=== PATIENT | female | born 1985 | race Caucasian/White ===

== ENCOUNTER 2022-01-11 17:43 | Emergency (ER) | payer SELFPAY ==
[2022-01-11 17:50] VITALS: BP 137/81; PULSE 78; RESP 14; TEMP 36.4; O2SAT 100
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
[2022-01-11] MEDS: IBUPROFEN 400 MG TABLET 800 MG PO (18:28)
[2022-01-11] MEDS: CYCLOBENZAPRINE HCL 10 MG TABLET PO (18:28)
== END 2022-01-11 18:57 | disposition home or self-care (01) ==
PROVIDERS: Emergency Provider Emergency Medicine
DX: S29.012A Strain of muscle and tendon of back wall of thorax, initial encounter (principal)
CPT/HCPCS: 99283; A9270

== ENCOUNTER 2023-03-09 05:43 | Emergency (ER) | payer SELFPAY ==
[2023-03-09 05:46] VITALS: BP 128/84; PULSE 76; RESP 18; TEMP 36.5; O2SAT 98
--- NOTE | 2023-03-09 05:56 | ED.URI ---
HPI - URI/Sore Throat General Chief Complaint: Upper Respiratory Infection Stated Complaint: Sinus Infection Source: patient Mode of arrival: ambulatory Limitations: no limitations History of Present Illness HPI Narrative: 37-year-old female presents with a 2 day history of -- nasal congestion -- sore throat -- chills without any fever -- had nausea / vomiting and diarrhea yesterday but none today MD elicited complaint: sore throat, nasal congestion and sinus pain Onset (ago): day(s) ( started 2 days ago) Consistency: constant Description of mucous: clear Able to tolerate fluids by mouth: Yes Exacerbating factors: nothing Relieving factors: nothing Treatments prior to arrival: none Related Data Home Medications Medication Instructions Recorded Confirmed duloxetine 20 mg capsule,delayed 20 mg PO DAILY 01/11/22 03/09/23 release Allergies Allergy/AdvReac Type Severity Reaction Status Date / Time No Known Allergies Allergy Unverified 01/11/22 18:07 Review of Systems Review of Systems: All systems reviewed & are unremarkable except as noted in HPI and below Constitutional: Constitutional: Reports as per HPI, Reports no additional constitutional complaints and Reports fever(s) Eyes: Eyes: Reports as per HPI and Reports no additional eye complaints ENT: Reports system reviewed and no additional complaints, except as documented, Reports as per HPI and Reports nasal congestion Cardiovascular: Cardiovascular: Reports as per HPI and Reports no additional cardiovascular complaints Respiratory: Respiratory: Reports as per HPI and Reports no additional respiratory complaints Gastrointestinal: Gastrointestinal: Reports as per HPI, Reports no additional gastrointestinal complaints, Reports diarrhea, Reports nausea and Reports vomiting Genitourinary: Genitourinary: Reports no additional female genitourinary complaints Musculoskeletal: Musculoskeletal: Reports no additional musculoskeletal complaints and Reports as per HPI Integumentary/Breasts: Skin/Breast: Reports system reviewed and no additional complaints, except as docu and Reports as per HPI Neurologic: Reports system reviewed and no additional complaints, except as documented and Reports as per HPI Psychiatric: Psychiatric: Reports no additional psychiatric complaints and Reports as per HPI Endocrine: Endocrine: Reports no additional endocrine complaints and Reports as per HPI Hematologic/Lymphatic: Hematologic/Lymphatic: Reports no additional hematologic/lymphatic complaints and Reports as per HPI Allergic/Immunologic: Allergic/Immunologic: Reports no additional allergic/immunologic complaints and Reports as per HPI [facility] Past Medical History Medical History (Updated 03/09/23 @ 06:59 by Willy Webb MD) Anxiety Exam Const: Nutritional Appearance: well nourished Orientation/consciousness: patient oriented x3 Limitations: no limitations HENMT: Head: normal to inspection Ears: external ears normal Face/Nose/Sinus: Normal external nose present Face and sinus: normal facial exam Mouth: Yes Normal oral and palatal mucosa present Throat: posterior oropharynx normal Eyes: Conjunctivae: conjunctivae normal Pupils: Equal, round and reactive pupils present EOM: EOMs intact bilaterally Direct Ophthalmoscopy: no photophobia Neck: Neck: normal visual inspection, no lymphadenopathy and no meningeal signs Chest: Chest palpation & inspection: normal inspection of the chest Resp: Effort & Inspection: normal respiratory effort Auscultation: clear to auscultation bilaterally Cardio: Rate: regular rate Rhythm: regular rhythm GI: GI Palp: Yes Soft to palpation Auscultation: normal bowel sounds Other: no tenderness/ rigidity / rebound. : General: Yes no CVA tenderness Skin: General skin exam: normal color Rashes: no rashes Wounds: no wounds Neuro: General: patient oriented x3, moves all extremities, no meningeal signs, no focal mo
[2023-03-09 06:54] LABS: Influenza A QL RT-PCR Negative (Negative); Influenza B QL RT-PCR Negative (Negative); SARS-CoV-2 RNA PCR Negative (Negative)
[2023-03-09 06:55] LABS: RSV RNA, RT-PCR Negative (Negative)
[2023-03-09 07:07] VITALS: BP 124/84; PULSE 78; RESP 20; TEMP 36.9; O2SAT 100
== END 2023-03-09 07:09 | disposition home or self-care (01) ==
PROVIDERS: Emergency Provider Internal Medicine Critical Care Medicine; PCP Physician Assistant
DX: J06.9 Acute upper respiratory infection, unspecified (principal); Z20.822 Contact with and (suspected) exposure to COVID-19
CPT/HCPCS: 87637; 99283

== ENCOUNTER 2023-10-21 07:30 | Emergency (ER) | payer OTHER, SELFPAY ==
[2023-10-21 07:30] VITALS: BP 130/82; PULSE 81; RESP 16; TEMP 36.6; O2SAT 100
--- NOTE | 2023-10-21 07:42 | ED.DENTAL ---
HPI - Dental/Oral General Chief complaint: Dental/Oral Stated complaint: mouth pain Time Seen by Provider: 10/21/23 07:42 Source: patient Mode of arrival: ambulatory Limitations: no limitations History of Present Illness HPI Narrative: Patient is a 38-year-old female with dental complaint of the gums as well as some finger complaints. also she has irritated skin at the nails and the skin region for the past week as well. MD Complaint: tooth pain ( Left upper gums are irritated and have a little white spot at the tooth and gum line) Onset (ago): week(s) (1) Duration: constant Severity: mild Severity scale (1-10): 2 Relieving factors: nothing Exacerbating factors: nothing Context: history of dental caries Associated symptoms: gum swelling Treatment prior to arrival: none Related Data Home Medications Medication Instructions Recorded Confirmed duloxetine 20 mg capsule,delayed 20 mg PO DAILY 01/11/22 03/09/23 release Allergies Allergy/AdvReac Type Severity Reaction Status Date / Time No Known Allergies Allergy Unverified 01/11/22 18:07 Review of Systems Review of Systems: All systems reviewed & are unremarkable except as noted in HPI and below Constitutional: Constitutional: Reports no additional constitutional complaints Eyes: Eyes: Reports no additional eye complaints ENT: Reports system reviewed and no additional complaints, except as documented Cardiovascular: Cardiovascular: Reports no additional cardiovascular complaints Respiratory: Respiratory: Reports no additional respiratory complaints Gastrointestinal: Gastrointestinal: Reports no additional gastrointestinal complaints Genitourinary: Genitourinary: Reports no additional female genitourinary complaints Musculoskeletal: Musculoskeletal: Reports no additional musculoskeletal complaints Integumentary/Breasts: Skin/Breast: Reports system reviewed and no additional complaints, except as docu Neurologic: Reports system reviewed and no additional complaints, except as documented Psychiatric: Psychiatric: Reports no additional psychiatric complaints Endocrine: Endocrine: Reports no additional endocrine complaints Hematologic/Lymphatic: Hematologic/Lymphatic: Reports no additional hematologic/lymphatic complaints Allergic/Immunologic: Allergic/Immunologic: Reports no additional allergic/immunologic complaints PMFSH Past Medical History Medical History Anxiety Exam Const: General: healthy appearing Nutritional Appearance: well nourished Orientation/consciousness: patient oriented x3 HENMT: Head: normal to inspection Ears: external ears normal Face/Nose/Sinus: Normal external nose present Other: Left upper maxilla at the gingiva is slightly irritated as well as exposed dentition at the gingival dental line from her session as well as gingivitis; no abscess Eyes: Conjunctivae: conjunctivae normal Pupils: Equal, round and reactive pupils present EOM: EOMs intact bilaterally Neck: Neck: normal visual inspection Chest: Chest palpation & inspection: normal inspection of the chest Resp: Effort & Inspection: normal respiratory effort Auscultation: clear to auscultation bilaterally Cardio: Rate: regular rate Rhythm: regular rhythm Heart sounds: no murmurs GI: Inspection: non-distended GI Palp: Yes Soft to palpation, No Tenderness to palpation present (GI), No Guarding due to palpation present (GI) and No Rigid due to palpation Auscultation: normal bowel sounds : General: Yes bladder normal to palpation Back/Spine/Pelvis: Back: no CVA tenderness Skin: General skin exam: normal color Rashes: no rashes Wounds: no wounds Other: bilateral middle fingers at the nail plate and skin have irritated slightly swollen skin of cellulitis appearance of paronychia and to a lesser extent lateral fingers have similarly appearance; patient says she bites on her nails often and
== END 2023-10-21 08:09 | disposition home or self-care (01) ==
PROVIDERS: Emergency Provider Emergency Medicine; PCP Physician Assistant
DX: R68.84 Jaw pain (principal); L03.012 Cellulitis of left finger; L03.011 Cellulitis of right finger
CPT/HCPCS: 99283